=== PATIENT | female | born 1995 | race Two or more races ===

== ENCOUNTER 2023-07-18 20:46 | Emergency (ER) | payer OTHER ==
[~2023-07-18] VITALS: Ht 165.1 cm; Wt 73.5 kg
[2023-07-19 00:37] LABS: HEMATOCRIT 36.8 % (36.0-45.00); HEMOGLOBIN 12.6 g/dL (12.0-15.00); MEAN CELL VOLUME 92.8 fL (80.00-100.00); MEAN CORPUSCULAR HEMOGLOBIN 31.7 pg (27.00-32.0); MEAN CORPUSCULAR HGB CONC 34.2 g/dl (32.0-36.0); PLATELET COUNT 268 K/uL (150-450); RED BLOOD COUNT 3.96 M/uL (4.00-6.00)
[2023-07-19 00:37] LABS: URINE APPEARANCE Cloudy; URINE BACTERIA 182.6 uL (0.0-1933); URINE BILIRRUBIN Negative (NEGATIVE); URINE BLOOD Negative; URINE COLOR Yellow; URINE EPITHELIAL CELLS 18.6 uL (0.0-38.8); URINE GLUCOSE Negative (NEGATIVE); URINE LEUKOCYTE Negative; URINE NITRATE Negative; URINE PROTEIN Negative (NEGATIVE); URINE RBC 3.3 uL (0.0-20.8); URINE WBC 4.7 uL (0.0-23.2)
[2023-07-19 00:46] LABS: PARTIAL THROMBOPLASTIN TIME 27.1 SECONDS (22.0-34.0); PROTHROMBIN TIME 10.5 SECONDS (9.0-11.5)
[2023-07-19 00:48] LABS: CALCIUM 8.7 mg/dL (8.5-10.1); CREATININE SERUM 0.62 mg/dL (0.55-1.02); GFR 116.35; POTASSIUM 3.19 mEq/L (3.5-5.1)
== END 2023-07-19 04:08 | disposition home or self-care (01) ==
LOC: ER 20:46
PROVIDERS: General Practice
DX: G44.009 Cluster headache syndrome, unspecified, not intractable (principal); R42 Dizziness and giddiness